=== PATIENT | female | born 1985 | race Two or more races ===

== ENCOUNTER 2020-06-22 23:49 | Emergency (ER) | payer SELFPAY ==
[~2020-06-22] VITALS: Ht 167.6 cm; Wt 74.8 kg
--- NOTE | 2020-06-23 | NUR ---
PT BIBRA FROM APARTMENT C/O ALCOHOL INTOXICATION. PT AAOX4, APPEARS INTOXICATED. VITAL SIGNS STABLE. RESPIRATIONS EVEN AND UNLABORED. NO ACUTE DISTRESS NOTED AT THIS TIME. PLACED ON MONITOR, WILL CONTINUE TO MONITOR
--- NOTE | 2020-06-23 00:45 | NUR ---
NEEDLE LOOM TENDER AT BEDSIDE FOR BLOOD DRAW
--- NOTE | 2020-06-23 00:47 | NUR ---
PT UNABLE TO PROVIDE URINE SAMPLE AT THIS TIME, AWARE
--- NOTE | 2020-06-23 01:00 | NUR ---
PT FOUND WANDERING INTO OTHER PATIENT'S ROOMS, CONSTANTLY NEEDS TO BE REDIRECTED BACK TO BED. PT BECOMING MORE RESTLESS AND AGGRESSIVE TOWARDS STAFF. DR SORIANO MADE AWARE. SITTER AT BEDSIDE
[2020-06-23] MEDS ORDERED: HALOPERIDOL LACTATE INJ 5 MG/ML VIAL ONE (01:15)
[2020-06-23] MEDS: HALOPERIDOL LACTATE INJ 5 MG/ML VIAL IM ONE (01:17)
[2020-06-23 01:18] LABS: BASOPHILS % (AUTO) 0.4 % (0.0-2.0); EOSINOPHILS % (AUTO) 1.9 % (0.0-6.0); HEMATOCRIT 44 % (33-45); HEMOGLOBIN 14.6 g/dL (11.5-14.8); LYMPHOCYTES # (AUTO) 4.4 /CMM (0.8-4.8); LYMPHOCYTES % (AUTO) 38.6 % (20.0-44.0); MEAN CORPUSCULAR HGB CONC 34 g/dl (31.0-36.0); MEAN CORPUSCULAR VOLUME 92 fL (82-100); MONOCYTES # (AUTO) 0.6 /CMM (0.1-1.30); MONOCYTES % (AUTO) 5.4 % (2.0-12.0); NEUTROPHILS # (AUTO) 6.2 /CMM (1.8-8.9); NEUTROPHILS % (AUTO) 53.7 % (43.0-81.0); PLATELET COUNT (AUTO) 268 /CMM (150-450); RED BLOOD CELL COUNT(AUTO) 4.76 MIL/uL (4.0-5.2); WHITE BLOOD COUNT (AUTO) 11.5 K/uL (4.3-11.0)
[2020-06-23 01:32] LABS: CALCIUM, SERUM 9.3 mg/dL (8.5-10.1); CARBON DIOXIDE 23 mmol/L (21-32); CHLORIDE 107 mmol/L (98-107); CREATININE 0.7 mg/dL (0.6-1.3); GLUCOSE 101 mg/dL (74-106); SODIUM SERUM 143 mmol/L (136-145); UREA NITROGEN, BLOOD 17 mg/dL (7-18)
[2020-06-23 01:38] LABS: LIPASE 196 U/L (73-393)
[2020-06-23 01:41] LABS: ALANINE AMINOTRANSFERASE 35 U/L (12-78); ALBUMIN 4.3 g/dL (3.4-5.0); ALCOHOL, BLOOD 342 mg/dL (0-0); ALKALINE PHOSPHATASE 86 U/L (46-116); ASPARTATE AMINOTRANSFERASE 22 U/L (15-37); BILIRUBIN,DIRECT 0.1 mg/dL (0.0-0.2); BILIRUBIN,TOTAL 0.2 mg/dL (0.2-1.0); TOTAL PROTEIN, SERUM 8.8 g/dL (6.4-8.2)
[2020-06-23 01:45] LABS: ACETAMINOPHEN < 2 ug/ml (10-30)
[2020-06-23 07:43] VITALS: BP 129/71
--- NOTE | 2020-06-23 07:43 | NUR ---
Patient discharged to home in stable condition. Written and verbal after care instructions given. Patient verbalizes understanding of instruction.
== END 2020-06-23 07:44 | disposition home or self-care (01) ==
LOC: ER 23:52
DX: F10.129 Alcohol abuse with intoxication, unspecified (principal); Y90.8 Blood alcohol level of 240 mg/100 ml or more
CPT/HCPCS: 36415; 80048; 80076; 80299; 80320; 83690; 84702; 85025; 96372; 99283; J1630; G0480